=== PATIENT | male | born 1955 | race African-American/Black ===

== ENCOUNTER 2020-02-11 05:47 | Outpatient (CLI) | payer MEDICARE, OTHER ==
[2020-02-11 12:49] LABS: Anion Gap 18 mmol/L (10-20); BUN (Urea Nitrogen) 27 mg/dL (8.4-25.7); Calc. Creatinine Clearance 0 mL/min (70-130); Carbon Dioxide 26 mmol/L (23-31); Chloride 99 mmol/L (98-107); Estimated GFR-MDRD 6; Potassium 4.8 mmol/L (3.5-5.1); Sodium 138 mmol/L (136-145)
[2020-02-11 12:50] LABS: #Eosinphils 0.2 thou/uL (0.0-0.7); #Monocytes 0.8 thou/uL (0.11-0.59); %Basophils 0.6 % (0.0-1.0); %Eosinophils 2.8 % (0.0-10.0); %Monocytes 12.5 % (0.0-10.0); %Neutrophils 50.1 % (42.0-75.0); Glucose 80 mg/dL (80-115); Mean Corpuscular HGB CONC 31.6 g/dL (32.0-36.0); Mean Corpuscular Hemoglobin 30.1 pg (27.0-31.0); Mean Corpuscular Volume 95.5 fL (78.0-98.0); Mean Platelet Volume 8.3 fL (7.4-10.4); Platelet Count 152 thou/uL (130-400); RBC Distribution Width 13.7 % (11.5-14.5); Red Blood Cell (RBC) Count 4.63 mill/uL (4.70-6.10)
[2020-02-12 12:15] LABS: SARS-CoV-2 MS2 Positive; SARS-CoV-2 N Gene Negative; SARS-CoV-2 S Gene Negative; SARS-CoV-2 orf1ab Negative
--- NOTE | 2020-02-14 10:16 | EKG ---
Test Reason : FOR02/15 Blood Pressure : / mmHG Vent. Rate : 080 BPM Atrial Rate : 080 BPM P-R Int : 156 ms QRS Dur : 112 ms QT Int : 424 ms P-R-T Axes : 046 -08 058 degrees QTc Int : 489 ms Normal sinus rhythm Prolonged QT Abnormal ECG When compared with ECG of 11-FEB-2020 10:43, (Unconfirmed) QRS voltage has decreased ST no longer elevated in Anterior leads QT has lengthened Confirmed by TIMUR JOHNSON (2) on 02/14/2020 10:16:36 AM Referred By: BRYSON Confirmed By:TIMUR JOHNSON
== END 2020-02-11 05:48 | disposition home or self-care (01) ==
LOC: LABBT 05:47
PROVIDERS: ATTEND Specialist
DX: Z01.818 Encounter for other preprocedural examination (principal); Z11.59 Encounter for screening for other viral diseases; N18.6 End stage renal disease
CPT/HCPCS: 80048; 85025; 93005; U0003; 87635; 93010

== ENCOUNTER 2020-02-16 06:06 | Day surgery (SDC) | payer MEDICARE, MEDICAID ==
[2020-02-09 13:08] VITALS: BMI 23.8
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
[2020-02-16] MEDS ORDERED: Fentanyl 100 MCG/2 ML VIAL ONE ×2 (08:39→13:05)
[2020-02-16] MEDS ORDERED: Propofol 500 MG/50 ML VIAL ONE (09:04)
[2020-02-16] MEDS ORDERED: PROPOFOL 40 ML ONE (09:04)
[2020-02-16] MEDS ORDERED: Famotidine/PF 20 mg/2ml Vial ONE (09:05)
[2020-02-16] MEDS ORDERED: Bupivacaine 0.25% HCL 30 ML VIAL ONE (09:08)
[2020-02-16] MEDS ORDERED: Lidocaine 1% w/Epinephrine 1:100K 20 ML VIAL ONE (09:08)
[2020-02-16] MEDS ORDERED: Heparin 5,000 UNITS/ML VIAL ONE (09:08)
[2020-02-16] MEDS ORDERED: Protamine Sulfate 50 MG/5 ML VIAL ONE (09:08)
[2020-02-16] MEDS ORDERED: Lidocaine 1% PF 5 ML VIAL ONE (10:44)
[2020-02-16] MEDS ORDERED: PROPOFOL 200 MG/20 ML VIAL ONE (10:44)
[2020-02-16] MEDS ORDERED: Ropivacaine 0.5% HCl/PF (150 MG/30 ML VIAL) ONE (10:44)
[2020-02-16] MEDS ORDERED: Heparin 10,000 UNITS/ 10 ML VIAL ONE (15:01)
--- NOTE | 2020-02-16 15:16 | OP ---
DATE OF PROCEDURE: 02/16/2020 PREOPERATIVE DIAGNOSES: 1. End-stage renal disease, (hemodialysis catheter placed at [place] [facility] [place] 2 months ago). 2. Poor veins noted on venous ultrasound, all the basilic vein may be available, left-handed. POSTOPERATIVE DIAGNOSES: 1. End-stage renal disease, (hemodialysis catheter placed at [place] [facility] [place] 2 months ago). 2. Poor veins noted on venous ultrasound, all the basilic vein may be available, left-handed. PROCEDURE PERFORMED: Right arm primary arteriovenous fistula, basilic vein to proximal radial artery, outflow basilic vein, will need a basilic vein transposition fistula, should not need a fistulogram. ANESTHESIA: Regional and TIVA. ESTIMATED BLOOD LOSS: 23 mL. DESCRIPTION OF PROCEDURE: The patient was taken to the operating room where under regional anesthesia and intravenous sedation, right upper extremity was prepared with ChloraPrep and draped in routine fashion. Proximal volar forearm incision longitudinally made below the antecubital fossa, carried down through the skin and subcutaneous tissue. The veins were dissected free. Cephalic vein was nonexistent. Basilic vein dissected free, branch divided between 4-0 silk ties and clips, mobilized the branch point and the patient given 6000 units of heparin intravenously. Vein spatulated at a branch point and interrogated, passing coronary dilators from 2 mm to 4 mm coronary dilator, out the basilic vein without obstruction. It was flushed with heparinized saline solution. A traumatic bulldog clamp applied, proximal radial artery dissected free, controlled proximally distally with vascular clamps. Longitudinal arteriotomy was made sharply, elongated with Stephen scissors. An end vein to side proximal radial artery anastomosis created with continuous suture of 6-0 Prolene, completing anastomosis, noted good Doppler signal in the outflow. Good hemostasis noted. The patient given 25 mg of protamine intravenously by Anesthesia. Subcutaneous tissue was approximated with 3-0 Monocryl, skin with subdermal 4-0 Monocryl, and [place] glue applied. Job ID: [id number]
== END 2020-02-16 15:30 | disposition home or self-care (01) ==
LOC: SDC 06:06
PROVIDERS: ATTEND Specialist
PROC: 031B0ZF Bypass Right Radial Artery to Lower Arm Vein, Open Approach (ICD-10-PCS; principal; 2020-02-16)
DX: I12.0 Hypertensive chronic kidney disease with stage 5 chronic kidney disease or end stage renal disease (principal); N18.6 End stage renal disease; M19.90 Unspecified osteoarthritis, unspecified site; F17.210 Nicotine dependence, cigarettes, uncomplicated; K43.2 Incisional hernia without obstruction or gangrene; Z79.82 Long term (current) use of aspirin; Z79.899 Other long term (current) drug therapy; Z90.2 Acquired absence of lung [part of]; Z99.2 Dependence on renal dialysis
CPT/HCPCS: J0690; J1644; J2704; J2720; J3010; S0020; S0028

== ENCOUNTER 2020-06-22 06:46 | Outpatient (CLI) | payer MEDICARE, MEDICAID ==
[2020-06-22 13:54] LABS: #Eosinphils 0.2 10x3/uL (0.0-0.5); #Monocytes 0.8 10x3/uL (0.0-1.1); #Neutrophils 3.5 10x3/uL (1.5-8.4); %Basophils 0.3 % (0.0-2.0); %Eosinophils 3.2 % (0.0-6.0); %Lymphocytes 28.5 % (18.0-47.0); %Monocytes 12.5 % (0.0-10.0); %Neutrophils 55.2 % (40.0-75.0); Hemoglobin 12.1 g/dL (14.0-18.0); Mean Corpuscular Hemoglobin 32.5 PG (27.0-33.0); Mean Corpuscular Volume 95.7 fl (80.0-100.0); Mean Platelet Volume 10.3 fl (7.4-10.4); Platelet Count 147 10x3/uL (130-400); RBC Distribution Width 14.5 % (11.5-14.5); Red Blood Cell (RBC) Count 3.72 10x6/uL (4.40-5.80); White Blood Cell (WBC) Count 6.3 10x3/uL (4.5-11.0)
[2020-06-22 14:18] LABS: Anion Gap 20 mmol/L (10-20); BUN (Urea Nitrogen) 47 mg/dL (8.4-25.7); Calc. Creatinine Clearance 0 mL/min (70-130); Calcium 8.7 mg/dL (7.8-10.44); Carbon Dioxide 23 mmol/L (23-31); Chloride 101 mmol/L (98-107); Estimated GFR-MDRD 5; Glucose 101 mg/dL (80-115); Potassium 4.7 mmol/L (3.5-5.1); Sodium 139 mmol/L (136-145)
[2020-06-22 22:58] LABS: SARS-CoV-2 MS2 Positive; SARS-CoV-2 N Gene Negative; SARS-CoV-2 S Gene Negative; SARS-CoV-2 by NAA Not Detected (NotDetected); SARS-CoV-2 orf1ab Negative
--- NOTE | 2020-06-27 06:54 | EKG ---
Test Reason : PREOP Blood Pressure : / mmHG Vent. Rate : 097 BPM Atrial Rate : 097 BPM P-R Int : 168 ms QRS Dur : 092 ms QT Int : 366 ms P-R-T Axes : 078 067 086 degrees QTc Int : 464 ms Normal sinus rhythm Possible Left atrial enlargement Left ventricular hypertrophy Nonspecific T wave abnormality Prolonged QT Abnormal ECG No previous ECGs available Confirmed by RAJNI BRONSON, CORIE ([id number]) on 06/27/2020 6:53:51 AM Referred By: Christiano MASSEY Confirmed By:CORIE URBAN MD
== END 2020-06-22 06:47 | disposition home or self-care (01) ==
LOC: LABBT 06:46
PROVIDERS: ATTEND Specialist
DX: Z01.818 Encounter for other preprocedural examination (principal); N18.6 End stage renal disease; Z20.828 Contact with and (suspected) exposure to other viral communicable diseases
CPT/HCPCS: 80048; 85025; 93005; U0003; 87635; 93010

== ENCOUNTER 2020-06-27 09:32 | Day surgery (SDC) | payer MEDICARE, MEDICAID ==
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
[2020-06-26 14:51] VITALS: BMI 24.8
[2020-06-27] MEDS ORDERED: PROPOFOL 200 MG/20 ML VIAL ONE (09:56)
[2020-06-27] MEDS ORDERED: Lidocaine 1% PF 5 ML VIAL ONE (09:56)
[2020-06-27 10:17] LABS: #Basophils 0.1 thou/uL (0.0-0.2); #Eosinphils 0.2 thou/uL (0.0-0.7); #Lymphocytes 1.4 thou/uL (1.20-3.40); #Monocytes 0.6 thou/uL (0.11-0.59); #Neutrophils 3.1 thou/uL (1.40-6.50); %Eosinophils 4.3 % (0.0-10.0); %Lymphocytes 26.7 % (21.0-51.0); %Monocytes 11.1 % (0.0-10.0); %Neutrophils 56.9 % (42.0-75.0); Hemoglobin 12.3 g/dL (14.0-18.0); Mean Corpuscular HGB CONC 32.4 g/dL (32.0-36.0); Mean Corpuscular Hemoglobin 32.5 pg (27.0-31.0); Platelet Count 155 thou/uL (130-400); RBC Distribution Width 13.9 % (11.5-14.5); Red Blood Cell (RBC) Count 3.78 mill/uL (4.70-6.10); White Blood Cell (WBC) Count 5.4 thou/uL (4.8-10.8)
[2020-06-27] MEDS ORDERED: Acetaminophen 500 MG TAB ONE (10:18)
[2020-06-27] MEDS ORDERED: Gabapentin 300 MG CAP ONE (10:18)
[2020-06-27] MEDS ORDERED: Bupivacaine PF 0.5% 30 ML VIAL ONE (10:30)
[2020-06-27] MEDS ORDERED: Lidocaine 1% w/Epinephrine 1:100K 20 ML VIAL ONE (10:30)
[2020-06-27] MEDS ORDERED: Heparin 5,000 UNITS/ML VIAL ONE (10:30)
[2020-06-27] MEDS ORDERED: Protamine Sulfate 50 MG/5 ML VIAL ONE (10:30)
[2020-06-27 10:39] LABS: Anion Gap 18 mmol/L (10-20); BUN (Urea Nitrogen) 26 mg/dL (8.4-25.7); Calc. Creatinine Clearance 8 mL/min (70-130); Calcium 9.5 mg/dL (7.8-10.44); Carbon Dioxide 27 mmol/L (23-31); Chloride 99 mmol/L (98-107); Estimated GFR-MDRD 6; Glucose 81 mg/dL (80-115); Potassium 4.6 mmol/L (3.5-5.1); Sodium 139 mmol/L (136-145)
[2020-06-27] MEDS ORDERED: Fentanyl 100 MCG/2 ML VIAL ONE (11:47)
[2020-06-27] MEDS ORDERED: Midazolam HCl 2 mg/2 ml Vial ONE (11:47)
[2020-06-27] MEDS ORDERED: Bupivacaine 0.25% HCL 30 ML VIAL ONE (13:00)
[2020-06-27] MEDS ORDERED: HYDROcodone/Acetaminophen 5/325 mg Tablet ONE (16:33)
[2020-06-27] MEDS ORDERED: Heparin 1,000 UNITS/ML VIAL ONE ×2 (16:36)
--- NOTE | 2020-06-27 20:43 | OP ---
DATE OF PROCEDURE: 06/27/2020 PREOPERATIVE DIAGNOSIS: End-stage renal disease. POSTOPERATIVE DIAGNOSIS: End-stage renal disease. PROCEDURE PERFORMED: Right arm basilic vein transposition fistula. ANESTHESIA: General, local with 0.25% Marcaine 60 mL, mixed with 1% Xylocaine with epinephrine 20 mL, 60 mL mixture used. FINDINGS: The patient's basilic vein was actually the brachial vein. There was some mid occlusion requiring dissection of collaterals to keep it in continuity. DESCRIPTION OF PROCEDURE: The patient was taken to the operating room where under general anesthesia, right upper extremity was prepared with ChloraPrep and draped in routine fashion. Incision was made from the proximal volar forearm to the axilla, carried down to skin and subcutaneous tissue. The vein unroofed from the deep fascia, dissected free, keeping nerves free of harm. Branches divided between 4-0 silk ties, 2-0 silk ties, 3-0 silk ties, and clips. Good hemostasis noted. Vein mobilized, marked to prevent torsion. A Vee Wick tunneler used with a 12 mm head to create a tunnel in the anterior arm between the antecubital fossa and the axilla. The patient given 50 mg of protamine. After adequate circulation time, inflow to the vein in the antecubital area was clamped proximally and distally, divided and flushed with heparinized saline solution and distended and flushed nicely. Then, it was brought from beneath the nerves into the axilla, connected to the tunneler, carefully tunneled, preventing torsion, removing the tunneler and end-to-end anastomosis created after spatulating both ends using continuous suture of 6-0 Prolene, releasing the clamps. Good hemostasis noted. Good flow in the fistula noted. The patient given 50 mg of protamine intravenously. Surgicel placed in the harvest bed medial arm. Good hemostasis noted. Subcutaneous tissue was approximated with 3-0 Monocryl, skin with opal. Sterile dressing applied. Job ID: [id number]
== END 2020-06-27 17:00 | disposition home or self-care (01) ==
LOC: SDC 09:32
PROVIDERS: ATTEND Specialist
PROC: 05SB0ZZ Reposition Right Basilic Vein, Open Approach (ICD-10-PCS; principal; 2020-06-27)
DX: I12.0 Hypertensive chronic kidney disease with stage 5 chronic kidney disease or end stage renal disease (principal); N18.6 End stage renal disease; F17.210 Nicotine dependence, cigarettes, uncomplicated; Z79.899 Other long term (current) drug therapy
CPT/HCPCS: 80048; 85025; J0690; J1644; J2250; J2704; J2720; J3010; S0020

== ENCOUNTER 2022-07-29 13:42 | Inpatient (IN) | payer OTHER, MEDICAID ==
[2022-07-29 15:28] LABS: #Eosinphils 0.1 thou/uL (0.0-0.7); #Lymphocytes 1.3 thou/uL (1.20-3.40); #Monocytes 1.1 thou/uL (0.11-0.59); #Neutrophils 6.2 thou/uL (1.40-6.50); %Basophils 0.3 % (0.0-1.0); %Eosinophils 0.7 % (0.0-10.0); %Lymphocytes 14.5 % (21.0-51.0); %Monocytes 12.6 % (0.0-10.0); %Neutrophils 71.9 % (42.0-75.0); Hemoglobin 10.9 g/dL (14.0-18.0); Mean Corpuscular HGB CONC 33.1 g/dL (32.0-36.0); Mean Corpuscular Hemoglobin 33.7 pg (27.0-31.0); Mean Platelet Volume 8.5 fL (7.4-10.4); Platelet Count 165 10x3/uL (130-400); RBC Distribution Width 13.2 % (11.5-14.5); Red Blood Cell (RBC) Count 3.25 mill/uL (4.70-6.10); White Blood Cell (WBC) Count 8.7 10x3/uL (4.8-10.8)
[2022-07-29 16:37] LABS: CKMB 1.8 ng/mL (0-6.6)
[2022-07-29] MEDS ORDERED: Azithromycin 500 MG VIAL ONE (17:05)
[2022-07-29 17:45] LABS: ALT (SGPT) 18 U/L (8-55); AST (SGOT) 21 U/L (5-34); Albumin 3.1 g/dL (3.4-4.8); Alkaline Phosphatase 76 U/L (40-110); Anion Gap 27 mmol/L (10-20); BUN (Urea Nitrogen) 98 mg/dL (8.4-25.7); Bilirubin, Total 0.6 mg/dL (0.2-1.2); Calc. Creatinine Clearance 0 mL/min (70-130); Calcium 9.5 mg/dL (7.8-10.44); Carbon Dioxide 19 mmol/L (23-31); Chloride 94 mmol/L (98-107); Estimated GFR 2; Globulin 6.8 g/dL (2.4-3.5); Glucose 97 mg/dL (80-115); Potassium 5.4 mmol/L (3.5-5.1); Protein, Total 9.9 g/dL (5.8-8.1); Sodium 135 mmol/L (136-145)
[2022-07-29] MEDS ORDERED: cefTRIAXone\\ROCEPHIN 2 GM VIAL ONE (18:29)
[2022-07-29] MEDS ORDERED: Insulin Regular 300 UNITS/3 ML VIAL ONE (20:38)
[2022-07-29] MEDS ORDERED: Aspirin Chewable 81 MG TAB ONE (20:38)
[2022-07-29] MEDS ORDERED: Calcium Chloride 1 GM/10 ML Abboject SYRINGE ONE (20:38)
[2022-07-29] MEDS ORDERED: Dextrose 50% Abboject 50 ML SYRINGE ONE (20:38)
[2022-07-29] MEDS ORDERED: Acetaminophen 325 MG TAB PO PRN (22:25)
[2022-07-30] MEDS: Ipratropium/Albuterol 3 ML NEB NEB SCH ×5 (00:35→23:31)
[2022-07-30 01:20] LABS: SARS-CoV-2 NAA Rapid Test Not Detected (NotDetected)
[2022-07-30 01:32] LABS: CKMB 2.3 ng/mL (0-6.6)
[2022-07-30 05:01] LABS: Hemoglobin 10.3 g/dL (14.0-18.0); Mean Corpuscular HGB CONC 32.7 g/dL (32.0-36.0); Mean Corpuscular Hemoglobin 34.2 pg (27.0-31.0); Mean Platelet Volume 7.1 fL (7.4-10.4); Platelet Count 171 10x3/uL (130-400); Red Blood Cell (RBC) Count 3.02 mill/uL (4.70-6.10); White Blood Cell (WBC) Count 6.4 10x3/uL (4.8-10.8)
[2022-07-30 05:12] LABS: Magnesium 2.8 mg/dL (1.6-2.6)
[2022-07-30 05:20] LABS: Phosphorus 9.6 mg/dL (2.3-4.7)
[2022-07-30 05:46] LABS: CKMB 2.1 ng/mL (0-6.6)
[2022-07-30 06:08] LABS: Band 9 % (5-11); Lymphocytes 25 % (21-51); MDiff Complete? YES; Macrocytosis SLIGHT = 6-15 cells (100X) (0-5/hpf); Monocytes 4 % (0-10); Neutrophil 62 % (42-75)
[2022-07-30] MEDS ORDERED: FLU VACC QS2022-23(65YR UP)/PF 240 MCG/0.7 ML SYRINGE IM ONE (09:00)
[2022-07-30] MEDS: Heparin 5,000 UNITS/ML VIAL SC SCH ×3 (10:06→21:16)
[2022-07-30 10:09] LABS: Anion Gap 25 mmol/L (10-20); BUN (Urea Nitrogen) 107 mg/dL (8.4-25.7); Calc. Creatinine Clearance 3 mL/min (70-130); Calcium 9.4 mg/dL (7.8-10.44); Carbon Dioxide 20 mmol/L (23-31); Chloride 96 mmol/L (98-107); Estimated GFR 2; Glucose 86 mg/dL (80-115); Potassium 5.2 mmol/L (3.5-5.1); Sodium 136 mmol/L (136-145)
[2022-07-30] MEDS ORDERED: CEFAZOLIN 2 GM in Sodium Chloride 0.9% 100 ML IVPB SCH (10:30)
[2022-07-30] MEDS: Sevelamer Carbonate 800 MG TAB PO SCH ×2 (11:45→19:31)
[2022-07-30 11:46] LABS: HBSAg Index 0.25 S/CO (0-0.99); Hep B Surf Ag Non-Reactive S/CO (NonReactive)
[2022-07-30 11:54] LABS: HBSAB Concentration 17.12 mIU/mL; Hep B Surf AB Reactive (NonReactive)
[2022-07-30] MEDS ORDERED: Heparin 10,000 UNITS/ 10 ML VIAL ONE ×3 (13:27→14:03)
[2022-07-30] MEDS ORDERED: Bupivacaine HCl 0.5%/Epinephrine 1:200,000/PF 30 ml Vial ONE (13:27)
[2022-07-30] MEDS ORDERED: Lidocaine 1% PF 5 ML VIAL ONE (13:27)
[2022-07-30] MEDS ORDERED: Ketamine 50 MG/ML (10ML VIAL) ONE (13:56)
[2022-07-30] MEDS ORDERED: Propofol 500 MG/50 ML VIAL ONE (13:56)
[2022-07-30] MEDS ORDERED: Fentanyl 250 MCG/5 ML VIAL ONE (13:56)
[2022-07-30] MEDS ORDERED: CEFAZOLIN 2 GM VIAL ONE (14:00)
[2022-07-30] MEDS ORDERED: Sodium Chloride 0.9% 0 ML ONE (14:00)
[2022-07-30] MEDS ORDERED: Sodium Chloride 0.9% 100 ML ONE (14:00)
[2022-07-30] MEDS ORDERED: PROPOFOL 200 MG/20 ML VIAL ONE (14:07)
[2022-07-30] MEDS ORDERED: Ondansetron HCl/PF 4 MG/2 ML Vial IVP PRN (15:01)
[2022-07-30] MEDS ORDERED: Promethazine HCl 25 MG/ML VIAL IM PRN (15:01)
[2022-07-30 15:34] LABS: Hep C IgG Ab Reflex HepC Qnt (NonReactive); Hep C Index 16.59 S/CO (0-0.79)
[2022-07-30 16:03] LABS: Hep B Core Total Index 7.07 S/CO (0-0.79)
[2022-07-30 16:04] LABS: Hep B Core Total Ab Reactive (NonReactive)
[2022-07-30] MEDS: Benzonatate 100 MG CAP PO PRN (21:16)
[2022-07-30] MEDS: Epoetin (ESRD) 10,000 UNITS/ML VIAL SC SCH (21:16)
[2022-07-30] MEDS: Azithromycin 500 MG in Sodium Chloride 0.9% 250 ML 250 ML IVPB SCH ×2 (21:35→22:29)
[2022-07-30] MEDS: cefTRIAXone\\ROCEPHIN 1 GM in Sodium Chloride 0.9% 100 ML IVPB SCH ×2 (21:36→22:33)
[2022-07-31 05:59] LABS: Hemoglobin 9.5 g/dL (14.0-18.0); Mean Corpuscular HGB CONC 32.7 g/dL (32.0-36.0); Mean Corpuscular Hemoglobin 33.5 pg (27.0-31.0); Mean Platelet Volume 6.9 fL (7.4-10.4); Platelet Count 212 10x3/uL (130-400); RBC Distribution Width 12.8 % (11.5-14.5); Red Blood Cell (RBC) Count 2.85 mill/uL (4.70-6.10)
[2022-07-31 06:31] LABS: Band 4 % (5-11); Lymphocytes 12 % (21-51); MDiff Complete? YES; Macrocytosis SLIGHT = 6-15 cells (100X) (0-5/hpf); Monocytes 15 % (0-10); Neutrophil 69 % (42-75)
[2022-07-31 06:33] LABS: Anion Gap 18 mmol/L (10-20); BUN (Urea Nitrogen) 42 mg/dL (8.4-25.7); Calc. Creatinine Clearance 6 mL/min (70-130); Carbon Dioxide 27 mmol/L (23-31); Chloride 96 mmol/L (98-107); Estimated GFR 6; Glucose 98 mg/dL (80-115); Magnesium 2.2 mg/dL (1.6-2.6); Phosphorus 6.4 mg/dL (2.3-4.7); Potassium 4.6 mmol/L (3.5-5.1); Sodium 136 mmol/L (136-145)
[2022-07-31] MEDS: Ipratropium/Albuterol 3 ML NEB NEB SCH ×3 (07:22→19:14)
[2022-07-31] MEDS ORDERED: Heparin 10,000 UNITS/ 10 ML VIAL ONE (09:01)
[2022-07-31] MEDS: Sevelamer Carbonate 800 MG TAB PO SCH ×3 (10:19→20:26)
[2022-07-31] MEDS: Heparin 5,000 UNITS/ML VIAL SC SCH ×3 (10:20→21:22)
[2022-07-31] MEDS ORDERED: Fentanyl 250 MCG/5 ML VIAL ONE (12:01)
[2022-07-31] MEDS ORDERED: Protamine Sulfate 50 MG/5 ML VIAL ONE (12:49)
[2022-07-31] MEDS ORDERED: Heparin 5,000 UNITS/ML VIAL ONE (12:49)
[2022-07-31] MEDS ORDERED: Bupivacaine/Epinephrine 0.25% 30 ML VIAL ONE (12:49)
[2022-07-31] MEDS ORDERED: Sodium Chloride 0.9% 100 ML ONE (13:07)
[2022-07-31] MEDS ORDERED: CEFAZOLIN 2 GM VIAL ONE (13:07)
[2022-07-31] MEDS ORDERED: PHENYLEPHRINE-NS 100 MCG/ML 10 ML SYRINGE ONE (13:22)
[2022-07-31] MEDS ORDERED: Ondansetron PF 4 MG/2 ML Vial ONE (13:22)
[2022-07-31] MEDS ORDERED: Dexamethasone 20 MG/5 ML VIAL ONE (13:22)
[2022-07-31] MEDS ORDERED: traMADol HCl 50 MG TAB PO PRN (13:40)
[2022-07-31] MEDS ORDERED: Acetaminophen 500 MG TAB PO SCH (13:45)
[2022-07-31] MEDS ORDERED: CEFAZOLIN 2 GM in Sodium Chloride 0.9% 100 ML IVPB SCH (14:15)
[2022-07-31] MEDS: Azithromycin 500 MG in Sodium Chloride 0.9% 250 ML 250 ML IVPB SCH (21:18)
[2022-07-31] MEDS: cefTRIAXone\\ROCEPHIN 1 GM in Sodium Chloride 0.9% 100 ML IVPB SCH (21:22)
[2022-07-31] MEDS: Benzonatate 100 MG CAP PO PRN (21:22)
[2022-07-31] MEDS ORDERED: cefTRIAXone\\ROCEPHIN 1 GM in Sodium Chloride 0.9% 100 ML IVPB SCH (22:00)
[2022-08-01] MEDS: Ipratropium/Albuterol 3 ML NEB NEB SCH ×2 (00:25→08:01)
[2022-08-01 04:50] LABS: #Lymphocytes 0.9 thou/uL (1.20-3.40); #Monocytes 1.1 thou/uL (0.11-0.59); #Neutrophils 6.1 thou/uL (1.40-6.50); %Eosinophils 0.1 % (0.0-10.0); %Lymphocytes 11.5 % (21.0-51.0); %Neutrophils 75.4 % (42.0-75.0); Hemoglobin 9.5 g/dL (14.0-18.0); Mean Platelet Volume 6.5 fL (7.4-10.4); Platelet Count 202 10x3/uL (130-400); RBC Distribution Width 12.8 % (11.5-14.5); Red Blood Cell (RBC) Count 2.79 mill/uL (4.70-6.10); White Blood Cell (WBC) Count 8.1 10x3/uL (4.8-10.8)
[2022-08-01 05:07] LABS: Phosphorus 5.5 mg/dL (2.3-4.7)
[2022-08-01 05:10] LABS: Anion Gap 17 mmol/L (10-20); BUN (Urea Nitrogen) 37 mg/dL (8.4-25.7); Calc. Creatinine Clearance 9 mL/min (70-130); Calcium 9.6 mg/dL (7.8-10.44); Carbon Dioxide 27 mmol/L (23-31); Chloride 97 mmol/L (98-107); Estimated GFR 9; Glucose 96 mg/dL (80-115); Magnesium 2.3 mg/dL (1.6-2.6); Potassium 4.5 mmol/L (3.5-5.1); Sodium 136 mmol/L (136-145)
[2022-08-01] MEDS ORDERED: Amoxicillin/Potassium Clav 875 MG TAB PO SCH (09:00)
[2022-08-01] MEDS ORDERED: Amoxicillin/Potassium Clav 500 MG TAB PO SCH (09:00)
[2022-08-01] MEDS: Sevelamer Carbonate 800 MG TAB PO SCH ×3 (09:20→16:45)
[2022-08-01] MEDS: Heparin 5,000 UNITS/ML VIAL SC SCH ×3 (09:20→20:52)
[2022-08-01] MEDS ORDERED: Non-Formulary Item 1 EACH (Fluticasone/Umeclidin/Vilanter [Trelegy Ellipta 100-62.5-25] 1 INH PRN (13:09)
[2022-08-01] MEDS: Mometasone 100 MCG/PUFF (1 INHALER) INH SCH ×2 (18:23→19:04)
[2022-08-01] MEDS ORDERED: Ipratropium/Albuterol 3 ML NEB NEB SCH (19:00)
[2022-08-01] MEDS: Ipratropium/Albuterol 3 ML NEB NEB PRN (19:05)
[2022-08-01] MEDS: Azithromycin 250 MG TAB PO SCH (20:52)
[2022-08-01 22:36] LABS: HCV RNA, log10 4.922 (.); Hep C PCR-Quant 83500 IU/mL (.)
[2022-08-02 06:40] LABS: #Basophils 0.1 thou/uL (0.0-0.2); #Eosinphils 0.1 thou/uL (0.0-0.7); #Lymphocytes 1.3 thou/uL (1.20-3.40); #Neutrophils 5.7 thou/uL (1.40-6.50); %Basophils 0.8 % (0.0-1.0); %Lymphocytes 15.4 % (21.0-51.0); %Monocytes 12.3 % (0.0-10.0); %Neutrophils 70.5 % (42.0-75.0); Hemoglobin 9.1 g/dL (14.0-18.0); Mean Corpuscular HGB CONC 32.7 g/dL (32.0-36.0); Mean Corpuscular Hemoglobin 33.3 pg (27.0-31.0); Mean Platelet Volume 6.7 fL (7.4-10.4); Platelet Count 206 10x3/uL (130-400); RBC Distribution Width 12.7 % (11.5-14.5); Red Blood Cell (RBC) Count 2.73 mill/uL (4.70-6.10); White Blood Cell (WBC) Count 8.1 10x3/uL (4.8-10.8)
[2022-08-02 06:47] LABS: Anion Gap 20 mmol/L (10-20); BUN (Urea Nitrogen) 54 mg/dL (8.4-25.7); Calc. Creatinine Clearance 6 mL/min (70-130); Calcium 9.1 mg/dL (7.8-10.44); Carbon Dioxide 25 mmol/L (23-31); Chloride 96 mmol/L (98-107); Estimated GFR 6; Glucose 89 mg/dL (80-115); Potassium 4.6 mmol/L (3.5-5.1); Sodium 136 mmol/L (136-145)
[2022-08-02] MEDS ORDERED: Heparin 10,000 UNITS/ 10 ML VIAL ONE (12:17)
[2022-08-02] MEDS: Sevelamer Carbonate 800 MG TAB PO SCH ×3 (16:34→18:24)
[2022-08-02] MEDS: Heparin 5,000 UNITS/ML VIAL SC SCH ×3 (16:35→20:39)
[2022-08-02] MEDS: Mometasone 100 MCG/PUFF (1 INHALER) INH SCH (18:47)
[2022-08-02] MEDS: Azithromycin 250 MG TAB PO SCH (20:39)
[2022-08-02] MEDS: Amoxicillin/Potassium Clav 500 MG TAB PO SCH (20:39)
[2022-08-03] MEDS: Mometasone 100 MCG/PUFF (1 INHALER) INH SCH ×2 (07:53→18:30)
[2022-08-03] MEDS: Heparin 5,000 UNITS/ML VIAL SC SCH ×3 (09:52→21:25)
[2022-08-03] MEDS: Sevelamer Carbonate 800 MG TAB PO SCH ×3 (09:53→16:47)
[2022-08-03] MEDS: Amoxicillin/Potassium Clav 500 MG TAB PO SCH (21:25)
[2022-08-03] MEDS: Azithromycin 250 MG TAB PO SCH (21:25)
[2022-08-04 05:52] LABS: #Eosinphils 0.1 thou/uL (0.0-0.7); #Lymphocytes 1.2 thou/uL (1.20-3.40); #Monocytes 0.8 thou/uL (0.11-0.59); %Basophils 0.3 % (0.0-1.0); %Eosinophils 1.2 % (0.0-10.0); %Lymphocytes 16.7 % (21.0-51.0); %Monocytes 11.3 % (0.0-10.0); %Neutrophils 70.6 % (42.0-75.0); Hemoglobin 8.2 g/dL (14.0-18.0); Mean Corpuscular HGB CONC 33.9 g/dL (32.0-36.0); Mean Corpuscular Hemoglobin 34.8 pg (27.0-31.0); Mean Platelet Volume 6.2 fL (7.4-10.4); Platelet Count 210 10x3/uL (130-400); RBC Distribution Width 12.5 % (11.5-14.5); Red Blood Cell (RBC) Count 2.37 mill/uL (4.70-6.10)
[2022-08-04 06:03] LABS: ALT (SGPT) Less than 7 U/L (8-55); AST (SGOT) 16 U/L (5-34); Albumin 2.4 g/dL (3.4-4.8); Alkaline Phosphatase 61 U/L (40-110); Anion Gap 16 mmol/L (10-20); BUN (Urea Nitrogen) 49 mg/dL (8.4-25.7); Bilirubin, Total 0.5 mg/dL (0.2-1.2); Calc. Creatinine Clearance 7 mL/min (70-130); Carbon Dioxide 27 mmol/L (23-31); Chloride 96 mmol/L (98-107); Estimated GFR 7; Globulin 5.7 g/dL (2.4-3.5); Glucose 80 mg/dL (80-115); Magnesium 2.4 mg/dL (1.6-2.6); Potassium 3.9 mmol/L (3.5-5.1); Protein, Total 8.1 g/dL (5.8-8.1); Sodium 135 mmol/L (136-145)
[2022-08-04] MEDS: Mometasone 100 MCG/PUFF (1 INHALER) INH SCH ×2 (07:50→18:59)
[2022-08-04] MEDS: Heparin 5,000 UNITS/ML VIAL SC SCH ×3 (09:59→21:02)
[2022-08-04] MEDS: Sevelamer Carbonate 800 MG TAB PO SCH ×3 (09:59→19:29)
[2022-08-04] MEDS: Ipratropium/Albuterol 3 ML NEB NEB PRN (16:14)
[2022-08-04] MEDS: Azithromycin 250 MG TAB PO SCH (21:02)
[2022-08-04] MEDS: Amoxicillin/Potassium Clav 500 MG TAB PO SCH (21:02)
[2022-08-05 04:54] LABS: #Eosinphils 0.1 thou/uL (0.0-0.7); #Lymphocytes 1.5 thou/uL (1.20-3.40); #Monocytes 0.7 thou/uL (0.11-0.59); %Basophils 0.4 % (0.0-1.0); %Eosinophils 1.4 % (0.0-10.0); %Lymphocytes 23.2 % (21.0-51.0); %Monocytes 11.5 % (0.0-10.0); %Neutrophils 63.6 % (42.0-75.0); Hemoglobin 8.3 g/dL (14.0-18.0); Mean Corpuscular Hemoglobin 34.6 pg (27.0-31.0); Mean Platelet Volume 6.4 fL (7.4-10.4); Platelet Count 209 10x3/uL (130-400); RBC Distribution Width 12.3 % (11.5-14.5); White Blood Cell (WBC) Count 6.3 10x3/uL (4.8-10.8)
[2022-08-05] MEDS: Mometasone 100 MCG/PUFF (1 INHALER) INH SCH ×3 (07:09→21:23)
[2022-08-05] MEDS ORDERED: Heparin 10,000 UNITS/ 10 ML VIAL ONE (12:24)
[2022-08-05] MEDS: Sevelamer Carbonate 800 MG TAB PO SCH ×3 (12:35→17:37)
[2022-08-05] MEDS: Heparin 5,000 UNITS/ML VIAL SC SCH ×3 (12:35→20:41)
[2022-08-05] MEDS: Amoxicillin/Potassium Clav 500 MG TAB PO SCH (20:41)
[2022-08-06] MEDS: Mometasone 100 MCG/PUFF (1 INHALER) INH SCH ×2 (05:37→18:42)
[2022-08-06] MEDS: Sevelamer Carbonate 800 MG TAB PO SCH ×3 (10:25→15:21)
[2022-08-06] MEDS: Heparin 5,000 UNITS/ML VIAL SC SCH ×2 (11:27→18:31)
[2022-08-06] MEDS: Epoetin (ESRD) 10,000 UNITS/ML VIAL SC SCH (11:28)
[2022-08-06] MEDS: Amoxicillin/Potassium Clav 500 MG TAB PO SCH (21:43)
[2022-08-07 05:48] LABS: Hemoglobin 8.4 g/dL (14.0-18.0); Mean Corpuscular HGB CONC 32.9 g/dL (32.0-36.0); Mean Corpuscular Hemoglobin 33.6 pg (27.0-31.0); Mean Platelet Volume 5.9 fL (7.4-10.4); Platelet Count 205 10x3/uL (130-400); RBC Distribution Width 12.7 % (11.5-14.5); Red Blood Cell (RBC) Count 2.51 mill/uL (4.70-6.10); White Blood Cell (WBC) Count 4.8 10x3/uL (4.8-10.8)
[2022-08-07 06:04] LABS: ALT (SGPT) Less than 7 U/L (8-55); AST (SGOT) 20 U/L (5-34); Albumin 2.6 g/dL (3.4-4.8); Alkaline Phosphatase 70 U/L (40-110); Anion Gap 18 mmol/L (10-20); BUN (Urea Nitrogen) 54 mg/dL (8.4-25.7); Bilirubin, Total 0.5 mg/dL (0.2-1.2); Calc. Creatinine Clearance 7 mL/min (70-130); Calcium 8.9 mg/dL (7.8-10.44); Carbon Dioxide 25 mmol/L (23-31); Estimated GFR 6; Globulin 6.1 g/dL (2.4-3.5); Glucose 70 mg/dL (80-115); Magnesium 2.5 mg/dL (1.6-2.6); Protein, Total 8.7 g/dL (5.8-8.1)
[2022-08-07 06:22] LABS: Band 3 % (5-11); Lymphocytes 23 % (21-51); MDiff Complete? YES; Macrocytosis SLIGHT = 6-15 cells (100X) (0-5/hpf); Monocytes 8 % (0-10); Neutrophil 66 % (42-75); Platelet Morphology Comment Appears Adequate
[2022-08-07 06:41] LABS: Chloride 97 mmol/L (98-107); Potassium 4.7 mmol/L (3.5-5.1); Sodium 135 mmol/L (136-145)
[2022-08-07] MEDS: Mometasone 100 MCG/PUFF (1 INHALER) INH SCH ×2 (07:34→18:47)
[2022-08-07] MEDS ORDERED: PROPOFOL 200 MG/20 ML VIAL ONE (11:16)
[2022-08-07] MEDS ORDERED: Lidocaine 1% PF 5 ML VIAL ONE (11:16)
[2022-08-07] MEDS ORDERED: CEFAZOLIN 2 GM VIAL ONE (11:24)
[2022-08-07] MEDS ORDERED: Sodium Chloride 0.9% 100 ML ONE (11:24)
[2022-08-07] MEDS ORDERED: Ondansetron HCl/PF 4 MG/2 ML Vial IVP PRN (11:54)
[2022-08-07] MEDS ORDERED: FENTANYL 50 MCG/ML 1 ML VIAL SLOW IVP PRN (11:54)
[2022-08-07] MEDS ORDERED: Heparin 10,000 UNITS/ 10 ML VIAL ONE (12:32)
[2022-08-07] MEDS ORDERED: Fentanyl 100 MCG/2 ML VIAL ONE (13:10)
[2022-08-07] MEDS: hydrALAZINE 20 MG/ML VIAL SLOW IVP PRN (16:17)
[2022-08-07 17:27] LABS: #Lymphocytes 1.6 thou/uL (1.20-3.40); #Neutrophils 5.3 thou/uL (1.40-6.50); %Basophils 0.3 % (0.0-1.0); %Eosinophils 0.3 % (0.0-10.0); %Lymphocytes 20.1 % (21.0-51.0); %Monocytes 12.7 % (0.0-10.0); %Neutrophils 66.6 % (42.0-75.0); Hemoglobin 9.7 g/dL (14.0-18.0); Mean Corpuscular HGB CONC 33.4 g/dL (32.0-36.0); Mean Corpuscular Hemoglobin 34.1 pg (27.0-31.0); Mean Platelet Volume 6.1 fL (7.4-10.4); Platelet Count 225 10x3/uL (130-400); RBC Distribution Width 12.7 % (11.5-14.5); Red Blood Cell (RBC) Count 2.85 mill/uL (4.70-6.10)
[2022-08-07] MEDS ORDERED: Labetalol HCl 100 MG/20 ML VIAL SLOW IVP PRN (17:46)
[2022-08-07 17:50] LABS: ALT (SGPT) Less than 7 U/L (8-55); AST (SGOT) 21 U/L (5-34); Albumin 2.9 g/dL (3.4-4.8); Alkaline Phosphatase 76 U/L (40-110); Anion Gap 20 mmol/L (10-20); BUN (Urea Nitrogen) 30 mg/dL (8.4-25.7); Bilirubin, Total 0.5 mg/dL (0.2-1.2); Calc. Creatinine Clearance 10 mL/min (70-130); Calcium 9.2 mg/dL (7.8-10.44); Carbon Dioxide 22 mmol/L (23-31); Chloride 98 mmol/L (98-107); Estimated GFR 11; Globulin 6.6 g/dL (2.4-3.5); Glucose 104 mg/dL (80-115); Potassium 4.1 mmol/L (3.5-5.1); Protein, Total 9.5 g/dL (5.8-8.1); Sodium 136 mmol/L (136-145)
[2022-08-07 18:01] LABS: Actual Bicarbonate (HCO3a) 24.4 mEq/L (22-28); Base Excess (BEa) 0.3 mEq/L (-2.0 to +3.0); CO2 Tension 37.5 mmHg (35.0-45.0); Calcium, Ionized (arterial) 1.14 mmol/L (1.12-1.30); Carboxyhemoglobin (COHb) 0.4 gm% (0.0-3.0); Hemoglobin (Hb) 10.7 g/dL (14.0-18.0); O2 Tension (PaO2), arterial 66.2 mmHg (> 80.0); Potassium - ABG Lab 4.45 mmol/L (3.70-5.30); pH, Arterial 7.43 (7.35-7.45)
[2022-08-07 18:02] LABS: Puncture Site R RAD
[2022-08-07] MEDS: Heparin 5,000 UNITS/ML VIAL SC SCH ×2 (20:30→20:38)
[2022-08-07] MEDS: Sevelamer Carbonate 800 MG TAB PO SCH ×2 (20:30→20:31)
[2022-08-07] MEDS: Amoxicillin/Potassium Clav 500 MG TAB PO SCH (20:38)
[2022-08-07] MEDS ORDERED: Famotidine/PF 20 mg/2ml Vial SLOW IVP SCH (21:00)
[2022-08-08 05:17] LABS: ALT (SGPT) Less than 7 U/L (8-55); AST (SGOT) 21 U/L (5-34); Albumin 2.6 g/dL (3.4-4.8); Alkaline Phosphatase 66 U/L (40-110); Anion Gap 16 mmol/L (10-20); BUN (Urea Nitrogen) 44 mg/dL (8.4-25.7); Bilirubin, Total 0.4 mg/dL (0.2-1.2); Calc. Creatinine Clearance 7 mL/min (70-130); Calcium 8.7 mg/dL (7.8-10.44); Carbon Dioxide 26 mmol/L (23-31); Chloride 98 mmol/L (98-107); Estimated GFR 8; Globulin 6.2 g/dL (2.4-3.5); Glucose 87 mg/dL (80-115); Magnesium 2.4 mg/dL (1.6-2.6); Protein, Total 8.8 g/dL (5.8-8.1); Sodium 135 mmol/L (136-145)
[2022-08-08 05:44] LABS: Band 1 % (5-11); Hemoglobin 8.6 g/dL (14.0-18.0); Lymphocytes 14 % (21-51); MDiff Complete? YES; Macrocytosis MODERATE=16-30 cells (100X) (0-5/hpf); Mean Corpuscular HGB CONC 33.3 g/dL (32.0-36.0); Mean Corpuscular Hemoglobin 34.2 pg (27.0-31.0); Mean Platelet Volume 6.2 fL (7.4-10.4); Metamyelocyte 1 % (0-0); Monocytes 11 % (0-10); Neutrophil 73 % (42-75); Ovalocytes SLIGHT = 2-5 cells (100X) (0-1/hpf); Platelet Count 168 10x3/uL (130-400); Platelet Morphology Comment Appears Adequate; RBC Distribution Width 12.6 % (11.5-14.5); Red Blood Cell (RBC) Count 2.51 mill/uL (4.70-6.10); White Blood Cell (WBC) Count 6.2 10x3/uL (4.8-10.8)
[2022-08-08] MEDS: Mometasone 100 MCG/PUFF (1 INHALER) INH SCH ×2 (08:31→18:24)
[2022-08-08] MEDS: Acetaminophen 500 MG TAB PO PRN (11:31)
[2022-08-08] MEDS: Sevelamer Carbonate 800 MG TAB PO SCH ×3 (11:32→16:41)
[2022-08-08] MEDS: Heparin 5,000 UNITS/ML VIAL SC SCH ×3 (11:32→21:32)
[2022-08-08] MEDS: traMADol HCl 50 MG TAB PO PRN (11:34)
[2022-08-08] MEDS: Amoxicillin/Potassium Clav 500 MG TAB PO SCH (21:32)
[2022-08-09 04:36] LABS: #Lymphocytes 0.8 thou/uL (1.20-3.40); #Monocytes 0.9 thou/uL (0.11-0.59); %Basophils 0.1 % (0.0-1.0); %Eosinophils 0.3 % (0.0-10.0); %Lymphocytes 12.1 % (21.0-51.0); %Monocytes 12.6 % (0.0-10.0); %Neutrophils 74.8 % (42.0-75.0); Mean Corpuscular HGB CONC 33.6 g/dL (32.0-36.0); Mean Corpuscular Hemoglobin 34.7 pg (27.0-31.0); Mean Platelet Volume 6.6 fL (7.4-10.4); Platelet Count 183 10x3/uL (130-400); RBC Distribution Width 12.7 % (11.5-14.5); Red Blood Cell (RBC) Count 2.58 mill/uL (4.70-6.10); White Blood Cell (WBC) Count 6.7 10x3/uL (4.8-10.8)
[2022-08-09 05:03] LABS: ALT (SGPT) Less than 7 U/L (8-55); AST (SGOT) 23 U/L (5-34); Albumin 2.5 g/dL (3.4-4.8); Alkaline Phosphatase 67 U/L (40-110); Anion Gap 18 mmol/L (10-20); BUN (Urea Nitrogen) 69 mg/dL (8.4-25.7); Bilirubin, Total 0.4 mg/dL (0.2-1.2); Calc. Creatinine Clearance 6 mL/min (70-130); Calcium 8.7 mg/dL (7.8-10.44); Carbon Dioxide 25 mmol/L (23-31); Chloride 96 mmol/L (98-107); Estimated GFR 6; Glucose 92 mg/dL (80-115); Magnesium 2.5 mg/dL (1.6-2.6); Potassium 5.2 mmol/L (3.5-5.1); Protein, Total 8.5 g/dL (5.8-8.1); Sodium 134 mmol/L (136-145)
[2022-08-09] MEDS: Sevelamer Carbonate 800 MG TAB PO SCH ×3 (08:05→17:15)
[2022-08-09] MEDS: Heparin 5,000 UNITS/ML VIAL SC SCH ×3 (08:06→20:37)
[2022-08-09] MEDS: Mometasone 100 MCG/PUFF (1 INHALER) INH SCH ×2 (08:32→18:08)
[2022-08-09] MEDS ORDERED: Heparin 10,000 UNITS/ 10 ML VIAL ONE (10:28)
[2022-08-09] MEDS: traMADol HCl 50 MG TAB PO PRN (20:37)
[2022-08-09] MEDS: Famotidine/PF 20 mg/2ml Vial SLOW IVP SCH (20:38)
[2022-08-10 05:45] LABS: #Lymphocytes 1.1 thou/uL (1.20-3.40); #Monocytes 0.8 thou/uL (0.11-0.59); #Neutrophils 5.5 thou/uL (1.40-6.50); %Basophils 0.2 % (0.0-1.0); %Eosinophils 0.1 % (0.0-10.0); %Lymphocytes 14.1 % (21.0-51.0); %Monocytes 11.2 % (0.0-10.0); %Neutrophils 74.3 % (42.0-75.0); Hemoglobin 9.1 g/dL (14.0-18.0); Mean Corpuscular HGB CONC 33.1 g/dL (32.0-36.0); Mean Corpuscular Hemoglobin 33.9 pg (27.0-31.0); Mean Platelet Volume 6.7 fL (7.4-10.4); Platelet Count 186 10x3/uL (130-400); RBC Distribution Width 12.8 % (11.5-14.5); White Blood Cell (WBC) Count 7.4 10x3/uL (4.8-10.8)
[2022-08-10 06:02] LABS: Anion Gap 18 mmol/L (10-20); BUN (Urea Nitrogen) 64 mg/dL (8.4-25.7); Calc. Creatinine Clearance 7 mL/min (70-130); Calcium 8.9 mg/dL (7.8-10.44); Carbon Dioxide 26 mmol/L (23-31); Chloride 97 mmol/L (98-107); Estimated GFR 7; Glucose 97 mg/dL (80-115); Potassium 4.6 mmol/L (3.5-5.1); Sodium 136 mmol/L (136-145)
[2022-08-10] MEDS: Mometasone 100 MCG/PUFF (1 INHALER) INH SCH ×2 (07:14→19:06)
[2022-08-10] MEDS: Sevelamer Carbonate 800 MG TAB PO SCH ×3 (08:45→18:12)
[2022-08-10] MEDS: Heparin 5,000 UNITS/ML VIAL SC SCH ×3 (08:45→21:33)
[2022-08-10] MEDS: Acetaminophen 500 MG TAB PO PRN (11:40)
[2022-08-10] MEDS ORDERED: Dextrose 50% Abboject 50 ML SYRINGE SLOW IVP PRN (12:15)
[2022-08-11] MEDS: traMADol HCl 50 MG TAB PO PRN ×2 (00:43→18:08)
[2022-08-11 05:22] LABS: Anion Gap 20 mmol/L (10-20); BUN (Urea Nitrogen) 92 mg/dL (8.4-25.7); Calc. Creatinine Clearance 5 mL/min (70-130); Calcium 8.8 mg/dL (7.8-10.44); Carbon Dioxide 23 mmol/L (23-31); Chloride 96 mmol/L (98-107); Estimated GFR 5; Glucose 100 mg/dL (80-115); Potassium 4.8 mmol/L (3.5-5.1); Sodium 134 mmol/L (136-145)
[2022-08-11] MEDS: Mometasone 100 MCG/PUFF (1 INHALER) INH SCH ×2 (07:20→19:46)
[2022-08-11] MEDS: Sevelamer Carbonate 800 MG TAB PO SCH (11:01)
[2022-08-11] MEDS: Heparin 5,000 UNITS/ML VIAL SC SCH ×3 (11:27→20:22)
[2022-08-11] MEDS ORDERED: Piperacillin/Tazobactam 3.375 GM in Sodium Chloride 0.9% 100 ML IVPB SCH ×3 (18:15→23:00)
[2022-08-11] MEDS ORDERED: Ipratropium Oral Inhaler ONE (18:27)
[2022-08-11] MEDS ORDERED: Vancomycin Hemodialysis Sliding Scale FS SCH (18:30)
[2022-08-11] MEDS ORDERED: Vancomycin 1 GM in Premix Bag 1 BAG IVPB SCH (19:00)
[2022-08-11] MEDS: Acetaminophen 500 MG TAB PO PRN (20:21)
[2022-08-11] MEDS: Famotidine/PF 20 mg/2ml Vial SLOW IVP SCH (20:22)
[2022-08-11] MEDS: Sevelamer 2.4 GM PACKET PER TUBE SCH (20:22)
[2022-08-12] MEDS: Piperacillin/Tazobactam 3.375 GM in Sodium Chloride 0.9% 100 ML IVPB SCH ×2 (00:57→12:26)
[2022-08-12] MEDS: traMADol HCl 50 MG TAB PO PRN (00:57)
[2022-08-12 05:17] LABS: ALT (SGPT) Less than 7 U/L (8-55); AST (SGOT) 33 U/L (5-34); Albumin 2.2 g/dL (3.4-4.8); Alkaline Phosphatase 72 U/L (40-110); Anion Gap 21 mmol/L (10-20); BUN (Urea Nitrogen) 123 mg/dL (8.4-25.7); Bilirubin, Total 0.5 mg/dL (0.2-1.2); Calc. Creatinine Clearance 5 mL/min (70-130); Carbon Dioxide 24 mmol/L (23-31); Chloride 93 mmol/L (98-107); Estimated GFR 4; Globulin 5.8 g/dL (2.4-3.5); Glucose 132 mg/dL (80-115); Potassium 5.2 mmol/L (3.5-5.1); Sodium 133 mmol/L (136-145)
[2022-08-12 06:53] LABS: Band 27 % (5-11); Eosinophils 1 % (0-10); Hemoglobin 8.8 g/dL (14.0-18.0); Lymphocytes 35 % (21-51); MDiff Complete? YES; Mean Corpuscular HGB CONC 33.9 g/dL (32.0-36.0); Mean Corpuscular Hemoglobin 34.3 pg (27.0-31.0); Mean Platelet Volume 6.9 fL (7.4-10.4); Neutrophil 37 % (42-75); Platelet Count 150 10x3/uL (130-400); RBC Distribution Width 12.6 % (11.5-14.5); Red Blood Cell (RBC) Count 2.57 mill/uL (4.70-6.10); White Blood Cell (WBC) Count 5.6 10x3/uL (4.8-10.8)
[2022-08-12 07:51] LABS: Vancomycin, Random 16.4 ug/mL (See Comment)
[2022-08-12] MEDS: Mometasone 100 MCG/PUFF (1 INHALER) INH SCH ×2 (08:01→18:49)
[2022-08-12] MEDS ORDERED: Heparin 10,000 UNITS/ 10 ML VIAL ONE (10:17)
[2022-08-12] MEDS: Sevelamer 2.4 GM PACKET PER TUBE SCH ×2 (12:15→21:43)
[2022-08-12] MEDS: Acetaminophen 500 MG TAB PO PRN (12:27)
[2022-08-12] MEDS: Heparin 5,000 UNITS/ML VIAL SC SCH ×3 (12:28→21:43)
[2022-08-12] MEDS ORDERED: Vancomycin HCl 500 MG in Sodium Chloride 0.9% 100 ML IVPB SCH (17:00)
[2022-08-13] MEDS: Piperacillin/Tazobactam 3.375 GM in Sodium Chloride 0.9% 100 ML IVPB SCH ×2 (01:07→14:32)
[2022-08-13] MEDS: Acetaminophen 500 MG TAB PO PRN (03:32)
[2022-08-13 06:13] LABS: #Lymphocytes 0.7 thou/uL (1.20-3.40); #Monocytes 0.8 thou/uL (0.11-0.59); #Neutrophils 4.9 thou/uL (1.40-6.50); %Basophils 0.1 % (0.0-1.0); %Eosinophils 0.1 % (0.0-10.0); %Lymphocytes 10.5 % (21.0-51.0); %Monocytes 11.7 % (0.0-10.0); %Neutrophils 77.5 % (42.0-75.0); Hemoglobin 8.7 g/dL (14.0-18.0); Mean Corpuscular Hemoglobin 34.8 pg (27.0-31.0); Mean Platelet Volume 6.9 fL (7.4-10.4); Platelet Count 149 10x3/uL (130-400); RBC Distribution Width 12.7 % (11.5-14.5); Red Blood Cell (RBC) Count 2.49 mill/uL (4.70-6.10); White Blood Cell (WBC) Count 6.3 10x3/uL (4.8-10.8)
[2022-08-13 06:33] LABS: Anion Gap 19 mmol/L (10-20); BUN (Urea Nitrogen) 76 mg/dL (8.4-25.7); Calc. Creatinine Clearance 8 mL/min (70-130); Calcium 9.1 mg/dL (7.8-10.44); Carbon Dioxide 27 mmol/L (23-31); Chloride 96 mmol/L (98-107); Estimated GFR 7; Glucose 103 mg/dL (80-115); Potassium 5.1 mmol/L (3.5-5.1); Sodium 137 mmol/L (136-145)
[2022-08-13] MEDS: Heparin 5,000 UNITS/ML VIAL SC SCH ×3 (09:41→20:30)
[2022-08-13] MEDS: Sevelamer 2.4 GM PACKET PER TUBE SCH ×2 (09:42→20:31)
[2022-08-13] MEDS: Epoetin (ESRD) 10,000 UNITS/ML VIAL SC SCH (09:47)
[2022-08-13] MEDS: Mometasone 100 MCG/PUFF (1 INHALER) INH SCH ×2 (13:05→19:30)
[2022-08-13] MEDS ORDERED: Ascorbic Acid 500 mg Chewable Tablet PO SCH (13:15)
[2022-08-13] MEDS ORDERED: Dexamethasone 10 MG/ML VIAL SLOW IVP SCH (14:00)
[2022-08-13] MEDS: Famotidine/PF 20 mg/2ml Vial SLOW IVP SCH (20:31)
[2022-08-14 05:23] LABS: Anion Gap 19 mmol/L (10-20); BUN (Urea Nitrogen) 102 mg/dL (8.4-25.7); Calc. Creatinine Clearance 7 mL/min (70-130); Calcium 9.4 mg/dL (7.8-10.44); Carbon Dioxide 26 mmol/L (23-31); Chloride 93 mmol/L (98-107); Estimated GFR 6; Glucose 106 mg/dL (80-115); Potassium 5.4 mmol/L (3.5-5.1); Sodium 133 mmol/L (136-145)
[2022-08-14 05:25] LABS: #Lymphocytes 0.3 thou/uL (1.20-3.40); #Monocytes 0.3 thou/uL (0.11-0.59); #Neutrophils 5.1 thou/uL (1.40-6.50); %Eosinophils 0.2 % (0.0-10.0); %Lymphocytes 5.5 % (21.0-51.0); %Monocytes 5.6 % (0.0-10.0); %Neutrophils 88.8 % (42.0-75.0); Hemoglobin 8.2 g/dL (14.0-18.0); Mean Corpuscular HGB CONC 33.1 g/dL (32.0-36.0); Mean Corpuscular Hemoglobin 33.8 pg (27.0-31.0); Mean Platelet Volume 6.8 fL (7.4-10.4); Platelet Count 160 10x3/uL (130-400); RBC Distribution Width 12.8 % (11.5-14.5); Red Blood Cell (RBC) Count 2.43 mill/uL (4.70-6.10); White Blood Cell (WBC) Count 5.7 10x3/uL (4.8-10.8)
[2022-08-14] MEDS: Mometasone 100 MCG/PUFF (1 INHALER) INH SCH ×2 (05:34→18:57)
[2022-08-14 08:16] LABS: Vancomycin, Random 14.1 ug/mL (See Comment)
[2022-08-14] MEDS ORDERED: Heparin 10,000 UNITS/ 10 ML VIAL ONE (08:21)
[2022-08-14] MEDS: Dexamethasone 4 mg/ml Vial SLOW IVP SCH (10:26)
[2022-08-14] MEDS: Heparin 5,000 UNITS/ML VIAL SC SCH ×3 (10:26→21:12)
[2022-08-14] MEDS: Ascorbic Acid 500 mg Chewable Tablet PO SCH (10:27)
[2022-08-14] MEDS: Sevelamer 2.4 GM PACKET PER TUBE SCH ×2 (10:27→21:12)
[2022-08-14] MEDS: Piperacillin/Tazobactam 3.375 GM in Sodium Chloride 0.9% 100 ML IVPB SCH ×2 (13:30)
[2022-08-14] MEDS ORDERED: Vancomycin HCl 750 MG in Sodium Chloride 0.9% 250 ML 250 ML IVPB SCH (17:00)
[2022-08-15] MEDS: Piperacillin/Tazobactam 3.375 GM in Sodium Chloride 0.9% 100 ML IVPB SCH ×2 (00:10→15:20)
[2022-08-15 05:01] LABS: #Lymphocytes 0.6 thou/uL (1.20-3.40); #Monocytes 1.2 thou/uL (0.11-0.59); #Neutrophils 7.7 thou/uL (1.40-6.50); %Basophils 0.1 % (0.0-1.0); %Eosinophils 0.1 % (0.0-10.0); %Lymphocytes 6.3 % (21.0-51.0); %Neutrophils 80.6 % (42.0-75.0); Hemoglobin 7.3 g/dL (14.0-18.0); Mean Corpuscular Hemoglobin 34.2 pg (27.0-31.0); Mean Platelet Volume 6.6 fL (7.4-10.4); Platelet Count 166 10x3/uL (130-400); RBC Distribution Width 12.8 % (11.5-14.5); Red Blood Cell (RBC) Count 2.15 mill/uL (4.70-6.10); White Blood Cell (WBC) Count 9.6 10x3/uL (4.8-10.8)
[2022-08-15 05:25] LABS: Anion Gap 14 mmol/L (10-20); BUN (Urea Nitrogen) 66 mg/dL (8.4-25.7); Calc. Creatinine Clearance 13 mL/min (70-130); Calcium 8.6 mg/dL (7.8-10.44); Carbon Dioxide 26 mmol/L (23-31); Chloride 97 mmol/L (98-107); Estimated GFR 12; Glucose 79 mg/dL (80-115); Sodium 133 mmol/L (136-145)
[2022-08-15] MEDS: Dextrose 10% in Water 1,000 ML IV SCH ×2 (06:46→23:52)
[2022-08-15] MEDS: Ascorbic Acid 500 mg Chewable Tablet PO SCH (08:21)
[2022-08-15] MEDS: Dexamethasone 4 mg/ml Vial SLOW IVP SCH (08:21)
[2022-08-15] MEDS: Sevelamer 2.4 GM PACKET PER TUBE SCH ×2 (08:22→22:54)
[2022-08-15] MEDS: Heparin 5,000 UNITS/ML VIAL SC SCH ×3 (08:22→22:54)
[2022-08-15] MEDS: Mometasone 100 MCG/PUFF (1 INHALER) INH SCH (10:16)
[2022-08-15] MEDS: Famotidine/PF 20 mg/2ml Vial SLOW IVP SCH (22:54)
[2022-08-15] MEDS: hydrALAZINE 20 MG/ML VIAL SLOW IVP PRN (23:52)
[2022-08-16] MEDS: Mometasone 100 MCG/PUFF (1 INHALER) INH SCH ×3 (01:46→18:31)
[2022-08-16] MEDS: Piperacillin/Tazobactam 3.375 GM in Sodium Chloride 0.9% 100 ML IVPB SCH ×2 (02:52→14:21)
[2022-08-16 06:53] LABS: #Lymphocytes 1.1 thou/uL (1.20-3.40); #Monocytes 1.2 thou/uL (0.11-0.59); #Neutrophils 7.2 thou/uL (1.40-6.50); %Basophils 0.5 % (0.0-1.0); %Eosinophils 0.4 % (0.0-10.0); %Lymphocytes 11.1 % (21.0-51.0); %Monocytes 12.7 % (0.0-10.0); %Neutrophils 75.3 % (42.0-75.0); Hemoglobin 8.8 g/dL (14.0-18.0); Mean Corpuscular Hemoglobin 33.5 pg (27.0-31.0); Mean Platelet Volume 6.4 fL (7.4-10.4); Platelet Count 198 10x3/uL (130-400); RBC Distribution Width 12.9 % (11.5-14.5); Red Blood Cell (RBC) Count 2.62 mill/uL (4.70-6.10); White Blood Cell (WBC) Count 9.6 10x3/uL (4.8-10.8)
[2022-08-16 07:15] LABS: Anion Gap 16 mmol/L (10-20); BUN (Urea Nitrogen) 93 mg/dL (8.4-25.7); Calc. Creatinine Clearance 10 mL/min (70-130); Calcium 9.2 mg/dL (7.8-10.44); Carbon Dioxide 25 mmol/L (23-31); Chloride 89 mmol/L (98-107); Estimated GFR 9; Glucose 88 mg/dL (80-115); Potassium 4.1 mmol/L (3.5-5.1); Sodium 126 mmol/L (136-145)
[2022-08-16 07:21] LABS: Vancomycin, Random 17.6 ug/mL (See Comment)
[2022-08-16] MEDS ORDERED: Heparin 10,000 UNITS/ 10 ML VIAL ONE (08:27)
[2022-08-16] MEDS: Heparin 5,000 UNITS/ML VIAL SC SCH ×3 (08:53→23:08)
[2022-08-16] MEDS: Dexamethasone 4 mg/ml Vial SLOW IVP SCH (08:53)
[2022-08-16] MEDS: Sevelamer 2.4 GM PACKET PER TUBE SCH (08:53)
[2022-08-16] MEDS: Ascorbic Acid 500 mg Chewable Tablet PO SCH (08:53)
[2022-08-16] MEDS ORDERED: Albumin 25% 25 GM/100 ML BOT IVPB PRN (09:53)
[2022-08-16] MEDS ORDERED: Vancomycin HCl 500 MG in Sodium Chloride 0.9% 100 ML IVPB SCH (17:00)
[2022-08-16 17:14] LABS: HIV-1 Quantitative, RNA PCR <20 copies/mL (.)
[2022-08-16] MEDS: Dextrose 10% in Water 1,000 ML IV SCH (22:02)
[2022-08-16] MEDS ORDERED: Ondansetron PF 4 MG/2 ML Vial IVP PRN (22:17)
[2022-08-16] MEDS ORDERED: Ondansetron PF 4 MG/2 ML Vial IVP SCH (22:30)
[2022-08-16] MEDS ORDERED: Morphine 2 MG/ML VIAL SLOW IVP PRN (22:31)
[2022-08-16] MEDS ORDERED: Morphine 2 MG/ML VIAL SLOW IVP SCH (22:45)
[2022-08-17] MEDS: Sevelamer 2.4 GM PACKET PER TUBE SCH ×3 (02:23→21:33)
[2022-08-17] MEDS: Piperacillin/Tazobactam 3.375 GM in Sodium Chloride 0.9% 100 ML IVPB SCH ×2 (02:23→14:06)
[2022-08-17 05:35] LABS: #Eosinphils 0.1 thou/uL (0.0-0.7); #Monocytes 1.3 thou/uL (0.11-0.59); #Neutrophils 7.3 thou/uL (1.40-6.50); %Basophils 0.3 % (0.0-1.0); %Eosinophils 0.6 % (0.0-10.0); %Monocytes 13.4 % (0.0-10.0); %Neutrophils 75.7 % (42.0-75.0); Hemoglobin 7.4 g/dL (14.0-18.0); Mean Corpuscular HGB CONC 33.6 g/dL (32.0-36.0); Mean Corpuscular Hemoglobin 33.9 pg (27.0-31.0); Mean Platelet Volume 6.4 fL (7.4-10.4); Platelet Count 186 10x3/uL (130-400); Red Blood Cell (RBC) Count 2.17 mill/uL (4.70-6.10); White Blood Cell (WBC) Count 9.6 10x3/uL (4.8-10.8)
[2022-08-17 05:55] LABS: Anion Gap 12 mmol/L (10-20); BUN (Urea Nitrogen) 63 mg/dL (8.4-25.7); Calc. Creatinine Clearance 14 mL/min (70-130); Carbon Dioxide 29 mmol/L (23-31); Chloride 95 mmol/L (98-107); Estimated GFR 13; Potassium 3.8 mmol/L (3.5-5.1); Sodium 132 mmol/L (136-145)
[2022-08-17 05:56] LABS: Calcium 9.1 mg/dL (7.8-10.44); Glucose 86 mg/dL (80-115)
[2022-08-17] MEDS: Ascorbic Acid 500 mg Chewable Tablet PO SCH (09:24)
[2022-08-17] MEDS: Heparin 5,000 UNITS/ML VIAL SC SCH ×3 (09:24→21:33)
[2022-08-17] MEDS: Dexamethasone 4 mg/ml Vial SLOW IVP SCH (09:24)
[2022-08-17] MEDS: Mometasone 100 MCG/PUFF (1 INHALER) INH SCH ×2 (09:25→18:11)
[2022-08-17] MEDS: Famotidine/PF 20 mg/2ml Vial SLOW IVP SCH (21:33)
[2022-08-18] MEDS: Piperacillin/Tazobactam 3.375 GM in Sodium Chloride 0.9% 100 ML IVPB SCH ×2 (01:50→11:43)
[2022-08-18 04:54] LABS: Anion Gap 15 mmol/L (10-20); BUN (Urea Nitrogen) 85 mg/dL (8.4-25.7); Calc. Creatinine Clearance 11 mL/min (70-130); Calcium 8.6 mg/dL (7.8-10.44); Carbon Dioxide 27 mmol/L (23-31); Chloride 91 mmol/L (98-107); Estimated GFR 9; Glucose 84 mg/dL (80-115); Sodium 129 mmol/L (136-145)
[2022-08-18 05:01] LABS: Hemoglobin 6.1 g/dL (14.0-18.0); Mean Corpuscular Hemoglobin 37.9 pg (27.0-31.0); Mean Corpuscular Volume 99.8 fl (78.0-98.0); Mean Platelet Volume 7.1 fL (7.4-10.4); Platelet Count 168 10x3/uL (130-400); RBC Distribution Width 13.1 % (11.5-14.5); White Blood Cell (WBC) Count 8.7 10x3/uL (4.8-10.8)
[2022-08-18 05:02] LABS: Band 11 % (5-11); Eosinophils 1 % (0-10); Hypochromia SLIGHT = 6-15 cells (100X) (0-5/hpf); Lymphocytes 11 % (21-51); MDiff Complete? YES; Monocytes 11 % (0-10); Neutrophil 66 % (42-75); Platelet Morphology Comment Appears Adequate
[2022-08-18] MEDS: Heparin 5,000 UNITS/ML VIAL SC SCH ×3 (09:18→23:11)
[2022-08-18] MEDS: Zinc Sulfate 220 MG CAP PO SCH (09:18)
[2022-08-18] MEDS: Sevelamer 2.4 GM PACKET PER TUBE SCH ×2 (09:18→23:12)
[2022-08-18] MEDS: Cholecalciferol 1,000 UNITS (25 MCG) TAB PO SCH (09:18)
[2022-08-18] MEDS: Dexamethasone 4 mg/ml Vial SLOW IVP SCH (09:18)
[2022-08-18] MEDS: Mometasone 100 MCG/PUFF (1 INHALER) INH SCH (09:18)
[2022-08-18] MEDS: Ascorbic Acid 500 mg Chewable Tablet PO SCH (09:18)
[2022-08-18 13:46] LABS: Vancomycin, Random 18.1 ug/mL (See Comment)
[2022-08-19] MEDS: Piperacillin/Tazobactam 3.375 GM in Sodium Chloride 0.9% 100 ML IVPB SCH ×2 (02:04→13:33)
[2022-08-19 07:19] LABS: Vancomycin, Random 16.8 ug/mL (See Comment)
[2022-08-19] MEDS ORDERED: Heparin 10,000 UNITS/ 10 ML VIAL ONE (08:33)
[2022-08-19] MEDS: Mometasone 100 MCG/PUFF (1 INHALER) INH SCH ×2 (11:53→13:58)
[2022-08-19] MEDS: Dexamethasone 4 mg/ml Vial SLOW IVP SCH (13:31)
[2022-08-19] MEDS: Sevelamer 2.4 GM PACKET PER TUBE SCH ×2 (13:31→21:47)
[2022-08-19] MEDS: Ascorbic Acid 500 mg Chewable Tablet PO SCH (13:32)
[2022-08-19] MEDS: Cholecalciferol 1,000 UNITS (25 MCG) TAB PO SCH (13:32)
[2022-08-19] MEDS: Heparin 5,000 UNITS/ML VIAL SC SCH (13:32)
[2022-08-19] MEDS: Zinc Sulfate 220 MG CAP PO SCH (13:32)
[2022-08-19] MEDS ORDERED: Vancomycin HCl 500 MG in Sodium Chloride 0.9% 100 ML IVPB SCH (17:00)
[2022-08-19] MEDS: Famotidine/PF 20 mg/2ml Vial SLOW IVP SCH (21:47)
[2022-08-20] MEDS: hydrALAZINE 20 MG/ML VIAL SLOW IVP PRN (04:24)
[2022-08-20 06:53] LABS: #Eosinphils 0.1 thou/uL (0.0-0.7); #Lymphocytes 1.1 thou/uL (1.20-3.40); #Monocytes 0.9 thou/uL (0.11-0.59); #Neutrophils 9.1 thou/uL (1.40-6.50); %Basophils 0.2 % (0.0-1.0); %Eosinophils 0.5 % (0.0-10.0); %Lymphocytes 10.1 % (21.0-51.0); %Neutrophils 81.2 % (42.0-75.0); Hemoglobin 8.8 g/dL (14.0-18.0); Mean Corpuscular HGB CONC 33.2 g/dL (32.0-36.0); Mean Corpuscular Volume 96.5 fl (78.0-98.0); Mean Platelet Volume 6.7 fL (7.4-10.4); Platelet Count 222 10x3/uL (130-400); RBC Distribution Width 13.9 % (11.5-14.5); Red Blood Cell (RBC) Count 2.76 mill/uL (4.70-6.10); White Blood Cell (WBC) Count 11.1 10x3/uL (4.8-10.8)
[2022-08-20 07:20] LABS: Anion Gap 14 mmol/L (10-20); BUN (Urea Nitrogen) 70 mg/dL (8.4-25.7); Calc. Creatinine Clearance 13 mL/min (70-130); Calcium 8.8 mg/dL (7.8-10.44); Carbon Dioxide 27 mmol/L (23-31); Chloride 95 mmol/L (98-107); Estimated GFR 11; Glucose 75 mg/dL (80-115); Potassium 3.8 mmol/L (3.5-5.1); Sodium 132 mmol/L (136-145)
[2022-08-20] MEDS: Mometasone 100 MCG/PUFF (1 INHALER) INH SCH ×3 (07:37→22:14)
[2022-08-20] MEDS ORDERED: Epoetin (ESRD) 10,000 UNITS/ML VIAL SC SCH (09:00)
[2022-08-20] MEDS: Cholecalciferol 1,000 UNITS (25 MCG) TAB PO SCH (09:22)
[2022-08-20] MEDS: Heparin 5,000 UNITS/ML VIAL SC SCH (09:22)
[2022-08-20] MEDS: Ascorbic Acid 500 mg Chewable Tablet PO SCH (09:22)
[2022-08-20] MEDS: Zinc Sulfate 220 MG CAP PO SCH (09:22)
[2022-08-20] MEDS: Sevelamer 2.4 GM PACKET PER TUBE SCH ×2 (09:22→22:14)
[2022-08-20] MEDS: Dexamethasone 4 MG TAB PER TUBE SCH (09:22)
[2022-08-20 11:26] VITALS: BMI 21.1
[2022-08-20] MEDS: Carvedilol 3.125 MG TAB PO SCH (18:10)
[2022-08-21 05:07] LABS: #Eosinphils 0.1 thou/uL (0.0-0.7); #Lymphocytes 1.1 thou/uL (1.20-3.40); #Neutrophils 8.4 thou/uL (1.40-6.50); %Basophils 0.1 % (0.0-1.0); %Eosinophils 0.6 % (0.0-10.0); %Lymphocytes 10.5 % (21.0-51.0); %Monocytes 9.8 % (0.0-10.0); Hemoglobin 8.3 g/dL (14.0-18.0); Mean Corpuscular HGB CONC 33.3 g/dL (32.0-36.0); Mean Corpuscular Hemoglobin 32.3 pg (27.0-31.0); Mean Corpuscular Volume 97.1 fl (78.0-98.0); Mean Platelet Volume 6.7 fL (7.4-10.4); Platelet Count 208 10x3/uL (130-400); RBC Distribution Width 13.7 % (11.5-14.5); Red Blood Cell (RBC) Count 2.55 mill/uL (4.70-6.10); White Blood Cell (WBC) Count 10.6 10x3/uL (4.8-10.8)
[2022-08-21 05:23] LABS: Anion Gap 14 mmol/L (10-20); BUN (Urea Nitrogen) 88 mg/dL (8.4-25.7); Calc. Creatinine Clearance 10 mL/min (70-130); Calcium 8.9 mg/dL (7.8-10.44); Carbon Dioxide 27 mmol/L (23-31); Chloride 93 mmol/L (98-107); Estimated GFR 9; Glucose 86 mg/dL (80-115); Potassium 3.8 mmol/L (3.5-5.1); Sodium 130 mmol/L (136-145)
[2022-08-21] MEDS ORDERED: Heparin 10,000 UNITS/ 10 ML VIAL ONE (07:39)
[2022-08-21] MEDS: Mometasone 100 MCG/PUFF (1 INHALER) INH SCH ×2 (08:05→20:47)
[2022-08-21] MEDS: Heparin 5,000 UNITS/ML VIAL SC SCH ×2 (09:11→20:47)
[2022-08-21] MEDS: Zinc Sulfate 220 MG CAP PO SCH (09:11)
[2022-08-21] MEDS: Cholecalciferol 1,000 UNITS (25 MCG) TAB PO SCH (09:11)
[2022-08-21] MEDS: Dexamethasone 4 MG TAB PER TUBE SCH (09:11)
[2022-08-21] MEDS: Sevelamer 2.4 GM PACKET PER TUBE SCH ×2 (09:11→20:47)
[2022-08-21] MEDS: Ascorbic Acid 500 mg Chewable Tablet PO SCH (09:11)
[2022-08-21] MEDS: Carvedilol 3.125 MG TAB PO SCH ×2 (09:11→17:36)
[2022-08-21] MEDS ORDERED: NIFEdipine XL 60 MG TAB PO SCH (10:45)
[2022-08-21] MEDS ORDERED: Amlodipine 10 MG TAB PO SCH (11:00)
[2022-08-21] MEDS ORDERED: traMADol HCl 50 MG TAB PO PRN (11:49)
[2022-08-21] MEDS ORDERED: NIFEdipine 10 MG CAP PO SCH (15:00)
[2022-08-21] MEDS: Famotidine/PF 20 mg/2ml Vial SLOW IVP SCH (20:46)
[2022-08-22] MEDS: Mometasone 100 MCG/PUFF (1 INHALER) INH SCH (06:22)
[2022-08-22] MEDS ORDERED: NIFEdipine XL 60 MG TAB PO SCH (09:00)
[2022-08-22] MEDS: Amlodipine 10 MG TAB PO SCH (09:16)
[2022-08-22] MEDS: Zinc Sulfate 220 MG CAP PO SCH (09:16)
[2022-08-22] MEDS: Carvedilol 3.125 MG TAB PO SCH ×2 (09:16→16:53)
[2022-08-22] MEDS: Cholecalciferol 1,000 UNITS (25 MCG) TAB PO SCH (09:16)
[2022-08-22] MEDS: Ascorbic Acid 500 mg Chewable Tablet PO SCH (09:16)
[2022-08-22] MEDS: Heparin 5,000 UNITS/ML VIAL SC SCH ×2 (09:16→21:22)
[2022-08-22] MEDS: Sevelamer 2.4 GM PACKET PER TUBE SCH ×2 (09:17→21:22)
[2022-08-23 08:28] VITALS: BP 184/82; TEMP 98.3
[2022-08-23] MEDS: Amlodipine 10 MG TAB PO SCH (09:42)
[2022-08-23] MEDS: Cholecalciferol 1,000 UNITS (25 MCG) TAB PO SCH (09:42)
[2022-08-23] MEDS: Zinc Sulfate 220 MG CAP PO SCH (09:42)
[2022-08-23] MEDS: Ascorbic Acid 500 mg Chewable Tablet PO SCH (09:42)
[2022-08-23] MEDS: Heparin 5,000 UNITS/ML VIAL SC SCH (09:42)
[2022-08-23] MEDS: Carvedilol 3.125 MG TAB PO SCH (09:42)
[2022-08-23] MEDS: Sevelamer 2.4 GM PACKET PER TUBE SCH (09:42)
[2022-08-23] MEDS ORDERED: Heparin 10,000 UNITS/ 10 ML VIAL ONE (13:54)
== END 2022-08-23 16:00 | DRG 264 ==
LOC: ERS 13:42 → ERHOLD 18:53 → INTOOBSV 18:53 → 2NO 23:58 → OBSVTOIN 07-30 16:39 → SURG A 08-07 13:51 → CCU 08-07 17:12 → 2NO 08-10 04:37
PROVIDERS: ADMIT Internal Medicine; ATTEND Internal Medicine
PROC: 5A1D70Z Performance of Urinary Filtration, Intermittent, Less than 6 Hours Per Day (ICD-10-PCS; 2022-07-30)
PROC: 0JH60XZ Insertion of Tunneled Vascular Access Device into Chest Subcutaneous Tissue and Fascia, Open Approach (ICD-10-PCS; 2022-07-30)
PROC: 02HV33Z Insertion of Infusion Device into Superior Vena Cava, Percutaneous Approach (ICD-10-PCS; 2022-07-30)
PROC: B5181ZA Fluoroscopy of Superior Vena Cava using Low Osmolar Contrast, Guidance (ICD-10-PCS; 2022-07-30)
PROC: 02HV33Z Insertion of Infusion Device into Superior Vena Cava, Percutaneous Approach (ICD-10-PCS; 2022-07-30)
PROC: B548ZZA Ultrasonography of Superior Vena Cava, Guidance (ICD-10-PCS; 2022-07-30)
PROC: 03180ZD Bypass Left Brachial Artery to Upper Arm Vein, Open Approach (ICD-10-PCS; principal; 2022-07-31)
PROC: 0DH63UZ Insertion of Feeding Device into Stomach, Percutaneous Approach (ICD-10-PCS; 2022-08-07)
PROC: 5A12012 Performance of Cardiac Output, Single, Manual (ICD-10-PCS; 2022-08-07)
PROC: 8E0ZXY6 Isolation (ICD-10-PCS; 2022-08-12)
PROC: 30233N1 Transfusion of Nonautologous Red Blood Cells into Peripheral Vein, Percutaneous Approach (ICD-10-PCS; 2022-08-19)
DX: T82.868A Thrombosis due to vascular prosthetic devices, implants and grafts, initial encounter (principal); N18.6 End stage renal disease; E43 Unspecified severe protein-calorie malnutrition; J69.0 Pneumonitis due to inhalation of food and vomit; J96.01 Acute respiratory failure with hypoxia; U07.1 COVID-19; I46.9 Cardiac arrest, cause unspecified; J12.82 Pneumonia due to coronavirus disease 2019; Z68.1 Body mass index [BMI] 19.9 or less, adult; I12.0 Hypertensive chronic kidney disease with stage 5 chronic kidney disease or end stage renal disease; Y83.2 Surgical operation with anastomosis, bypass or graft as the cause of abnormal reaction of the patient, or of later complication, without mention of misadventure at the time of the procedure; R13.13 Dysphagia, pharyngeal phase; F17.210 Nicotine dependence, cigarettes, uncomplicated; E87.70 Fluid overload, unspecified; E87.5 Hyperkalemia; D63.1 Anemia in chronic kidney disease; E83.39 Other disorders of phosphorus metabolism; B18.2 Chronic viral hepatitis C; I95.9 Hypotension, unspecified; E86.1 Hypovolemia; Z99.2 Dependence on renal dialysis; Z79.899 Other long term (current) drug therapy
CPT/HCPCS: 36415; 36416; 36430; 70450; 71045; 71046; 74018; 74230; 80048; 80053; 80202; 82553; 82805; 83735; 83880; 84100; 84145; 84484; 85025; 86140; 86704; 86850; 86900; 86901; 87040; 87522; 87536; 87811; 90935; 93005; 93010; 93306; 93970; 94640; 96365; 96375; C1713; C1751; C1752; C1776; G0257; J0360; J0456; J0696; J1100; J1644; J1815; J2272; J2405; J2543; J2704; J2720; J3010; J3370; J3370-JW; J3371; J3490; J7050; J7620; J7999; J8540; L8670; P9016; Q4081; S0028; U0002; U0003; U0005